=== PATIENT | female | born 1960 | race Caucasian/White ===

== ENCOUNTER 2023-04-20 14:57 | Day surgery (SDC) | payer BC ==
[2023-04-20] MEDS ORDERED: Decadron 4 MG INJ IV ONE (14:58)
[2023-04-20] MEDS ORDERED: Sodium Chloride 0.9(Preservative Free) 10 ML IJ ONE (14:58)
[2023-04-20] MEDS ORDERED: XYLOCAINE-MPF 1% 5ML SDV IJ ONE (14:58)
[2023-04-20] MEDS ORDERED: Lactated Ringers 1,000 ML IV ONE (18:47)
--- NOTE | 2023-04-20 20:22 | XRAY ---
Indication: Cervical CHARLEY Intraoperative fluoroscopy provided for 19 seconds. 2 digital spot image submitted for interpretation demonstrates posterior needle tip projecting posterior to cervical thoracic junction. Small amount of contrast injected for needle tip placement. Correlate with intraoperative findings/report.
--- NOTE | 2023-04-21 10:25 | XRAY ---
19 seconds of fluoroscopy was used in surgery for a cervical CHARLEY.
== END 2023-04-20 18:33 | disposition home or self-care (01) ==
LOC: SDC-PAIN 14:57
PROVIDERS: ATTEND Psychiatry & Neurology Pain Medicine
DX: M54.12 Radiculopathy, cervical region (principal); R73.03 Prediabetes
CPT/HCPCS: 62321; 72040; 77003; 82947; J1100; Q9966

== ENCOUNTER 2023-05-18 07:54 | Day surgery (SDC) | payer BC ==
[2023-05-18] MEDS ORDERED: Decadron 4 MG INJ IV ONE (07:55)
[2023-05-18] MEDS ORDERED: LIDOCAINE HCL 2% 100 MG/5 ML IJ ONE (07:55)
[2023-05-18] MEDS ORDERED: DIPRIVAN 200 MG/20 ML IV ONE (10:18)
[2023-05-18] MEDS ORDERED: Lactated Ringers 1,000 ML IV ONE (10:53)
--- NOTE | 2023-05-18 11:27 | XRAY ---
Indication: Left C3-C5 MBB. Intraoperative fluoroscopy provided for 20 seconds. 2 digital spot image submitted for interpretation demonstrates posterior needle tips projecting over the expected left C3-C5 nerve roots. Correlate with intraoperative findings/report.
--- NOTE | 2023-05-18 12:06 | XRAY ---
20 seconds of fluoroscopy was used in surgery for a left C3-C5 MBB.
== END 2023-05-18 10:47 | disposition home or self-care (01) ==
LOC: SDC-PAIN 07:54
PROVIDERS: ATTEND Psychiatry & Neurology Pain Medicine
DX: M47.812 Spondylosis without myelopathy or radiculopathy, cervical region (principal); R73.03 Prediabetes
CPT/HCPCS: 64490; 64491; 72040; 77002; 82947; J1100; J2704

== ENCOUNTER 2023-06-15 09:33 | Day surgery (SDC) | payer BC ==
[2023-06-15] MEDS ORDERED: BUPIVACAINE 0.5% VIAL IJ ONE (09:34)
[2023-06-15] MEDS ORDERED: Lactated Ringers 1,000 ML IV ONE (11:18)
[2023-06-15] MEDS ORDERED: DIPRIVAN 200 MG/20 ML IV ONE (11:22)
--- NOTE | 2023-06-15 13:05 | XRAY ---
Indication: Left C3-C5 MBB. Intraoperative fluoroscopy provided for 16 seconds. 2 digital spot image submitted for interpretation demonstrates posterior needle tips projecting over the expected left C3-C5 nerve roots. Correlate with intraoperative findings/report.
--- NOTE | 2023-06-15 14:06 | XRAY ---
16 seconds of fluoroscopy was used in surgery for a left C3-C5 MBB.
== END 2023-06-15 11:50 | disposition home or self-care (01) ==
LOC: SDC-PAIN 09:33
PROVIDERS: ATTEND Psychiatry & Neurology Pain Medicine
DX: M47.812 Spondylosis without myelopathy or radiculopathy, cervical region (principal); R73.03 Prediabetes
CPT/HCPCS: 64490; 64491; 72040; 77002; 82947; J2704

== ENCOUNTER 2023-08-03 07:33 | Day surgery (SDC) | payer BC ==
[2023-08-03] MEDS ORDERED: Xylocaine-Mpf 2% 5 Ml Vial IJ ONE (07:34)
[2023-08-03] MEDS ORDERED: Decadron 4 MG INJ IV ONE (07:34)
[2023-08-03] MEDS ORDERED: DIPRIVAN 200 MG/20 ML IV ONE (09:29)
[2023-08-03] MEDS ORDERED: Lactated Ringers 1,000 ML IV ONE (10:10)
--- NOTE | 2023-08-03 11:41 | XRAY ---
Indication: Right C3-C5 MBB. Intraoperative fluoroscopy provided for 18 seconds. 2 digital spot image submitted for interpretation demonstrates posterior needle tips projecting over the expected right C3-C5 nerve roots. Correlate with intraoperative findings/report.
--- NOTE | 2023-08-03 12:47 | XRAY ---
18 seconds of fluoroscopy was used in surgery for a right C3-C5 MBB.
== END 2023-08-03 09:43 | disposition home or self-care (01) ==
LOC: SDC-PAIN 07:33
PROVIDERS: ATTEND Psychiatry & Neurology Pain Medicine
DX: M47.812 Spondylosis without myelopathy or radiculopathy, cervical region (principal); R73.03 Prediabetes
CPT/HCPCS: 64490; 64491; 72040; 77002; 82947; J1100; J2704

== ENCOUNTER 2023-09-28 10:06 | Day surgery (SDC) | payer BC ==
[2023-09-28] MEDS ORDERED: BUPIVACAINE 0.5% VIAL IJ ONE (10:07)
[2023-09-28] MEDS ORDERED: Decadron 4 MG INJ IV ONE (10:07)
[2023-09-28] MEDS ORDERED: DIPRIVAN 200 MG/20 ML IV ONE (12:20)
[2023-09-28] MEDS ORDERED: Lactated Ringers 1,000 ML IV ONE (12:56)
--- NOTE | 2023-09-28 13:23 | XRAY ---
Indication: Right C3-C5 MBB. Intraoperative fluoroscopy provided for 13 seconds. 3 digital spot image submitted for interpretation demonstrate posterior needle tips projecting over the expected right C3-C5 nerve roots. Correlate with intraoperative findings/report.
--- NOTE | 2023-09-28 14:15 | XRAY ---
13 seconds of fluoroscopy was used in surgery for a right C3-C5 MBB.
== END 2023-09-28 12:50 | disposition home or self-care (01) ==
LOC: SDC-PAIN 10:06
PROVIDERS: ATTEND Psychiatry & Neurology Pain Medicine
DX: M47.812 Spondylosis without myelopathy or radiculopathy, cervical region (principal); R73.03 Prediabetes
CPT/HCPCS: 64490; 64491; 72040; 77002; 82947; J1100; J2704